=== PATIENT | male | born 1965 | race Hispanic/Latino ===

== ENCOUNTER 2021-03-08 08:31 | Inpatient (IN) | payer OTHER, SELFPAY ==
[~2021-03-08] VITALS: Ht 165.1 cm; Wt 63.5 kg
[2021-03-08 09:33] LABS: BASOPHILS % (AUTO) 0.2 % (0.0-5.0); EOSINOPHILS % (AUTO) 0.3 % (0.0-8.0); HEMATOCRIT 37.7 % (42-54); LYMPHOCYTES % (AUTO) 13.6 % (21.0-51.0); MEAN CORPUSCULAR HGB CONC 33.2 g/dL (32.0-36.0); MEAN CORPUSCULAR VOLUME 93.5 fL (79-99); MONOCYTES % (AUTO) 14.2 % (3.0-13.0); NEUTROPHILS % (AUTO) 71.4 % (40.0-77.0); PLATELET COUNT (AUTO) 203 K/uL (130-400); RED BLOOD CELL COUNT(AUTO) 4.03 MIL/uL (4.50-6.20); RED CELL DISTRIBUTION WIDTH 11.9 % (11.0-15.5); WHITE BLOOD COUNT (AUTO) 8.9 K/uL (4.8-10.8)
[2021-03-08 09:39] LABS: APPEARANCE,URINE CLEAR (CLEAR); BILIRUBIN,URINE NEGATIVE (NEGATIVE); COLOR,URINE YELLOW (YELLOW); GLUCOSE, URINE (UA) NEGATIVE (NEGATIVE); KETONES,URINE NEGATIVE (NEGATIVE); LEUKOCYTE ESTERASE ,URINE NEGATIVE (NEGATIVE); NITRATE,URINE NEGATIVE (NEGATIVE); OCCULT BLOOD,URINE NEGATIVE (NEGATIVE); PROTEIN,URINE NEGATIVE (NEGATIVE); UROBILINOGEN,URINE 0.2 mg/dL (0.2-1.0)
[2021-03-08 09:48] LABS: ALBUMIN 3.7 g/dL (3.5-5.0); BILIRUBIN,TOTAL 0.7 mg/dL (0.2-1.0); CREATININE 0.7 mg/dL (0.5-1.5); POTASSIUM 3.5 mmol/L (3.5-5.1); TOTAL PROTEIN, SERUM 6.8 g/dL (6.0-8.3)
[2021-03-08] MEDS ORDERED: ASPIRIN 325MG TAB ONE (10:11)
[2021-03-08] MEDS ORDERED: ASPIRIN 325MG TAB PO ONE (10:30)
[2021-03-08] MEDS ORDERED: 0.9%NACL 1000ML 1,000 ML IV SCH (10:30)
[2021-03-08] MEDS ORDERED: ACETAMINOPHEN 325 MG TAB PO PRN ×2 (12:00)
[2021-03-08] MEDS ORDERED: ONDANSETRON 4MG INJ IV PRN (12:00)
[2021-03-08] MEDS ORDERED: HYDRALAZINE 20MG/ML VIAL IV PRN (12:00)
[2021-03-08] MEDS ORDERED: DIPHENHYDRAMINE HCL 25 MG CAPSULE PO PRN (12:00)
[2021-03-08] MEDS ORDERED: PHARMACY COMMUNICATION MISC SCH (12:00)
[2021-03-08 12:34] LABS: CHOLESTEROL 144 mg/dL (<200); HDL CHOLESTEROL 54 mg/dL (29-71); HEMOGLOBIN A1C 6.2 % (4.0-6.0); LDL DIRECT 73 mg/dL (0-99); TRIGLYCERIDES 74 mg/dL (30-200)
[2021-03-08] MEDS ORDERED: IOHEXOL-350 75 ML VIAL IV ONE (13:17)
[2021-03-08 15:27] VITALS: BP 92/61
[2021-03-08] MEDS ORDERED: ASPI-1005 PO (15:52)
[2021-03-08] MEDS ORDERED: ATOR10 PO (15:57)
[2021-03-08] MEDS: INSULIN HUMULIN R 100 UNIT/ML 3ML SQ SCH ×2 (16:30→19:55)
[2021-03-08] MEDS: 0.9%NACL 1000ML 1,000 ML IV SCH (16:47)
[2021-03-08] MEDS ORDERED: POTASSIUM CHLORIDE 20MEQ/100ML 100 ML IV PRN (17:00)
[2021-03-08] MEDS ORDERED: LIDOCAINE HCL-MPF 1% 2ML VIAL IV PRN (17:00)
[2021-03-08] MEDS ORDERED: POTASSIUM CHLORIDE 10% ELIXIR 20 MEQ/15 ML UDCUP PO PRN (17:00)
[2021-03-08] MEDS: HEPARIN 25,000 UNITS/250ML D5W 250 ML IV PRN (17:06)
[2021-03-08] MEDS: KCL 20 MEQ ERTAB PO PRN (17:41)
[2021-03-08] MEDS ORDERED: CLOPIDOGREL 300MG TAB PO ONE (18:00)
[2021-03-08] MEDS: FAMOTIDINE 20MG TAB PO SCH (19:35)
[2021-03-08] MEDS: ATORVASTATIN 40 MG TABLET PO SCH (19:35)
[2021-03-08 20:17] VITALS: BP 90/55
[2021-03-08 21:45] VITALS: BP 100/62
[2021-03-08 23:29] VITALS: BP 87/52
[2021-03-09] VITALS (12 sets, daily range): BP systolic 91–132; BP diastolic 44–88
[2021-03-09] MEDS ORDERED: HEPARIN 5,000 UNIT VIAL SQ PRN (01:00)
[2021-03-09] MEDS: 0.9%NACL 1000ML 1,000 ML IV SCH ×2 (01:07→11:46)
[2021-03-09] MEDS: KCL 20 MEQ ERTAB PO PRN ×2 (01:07→03:17)
[2021-03-09] MEDS ORDERED: HEPARIN 5,000 UNIT VIAL IV PRN (01:30)
[2021-03-09] MEDS: HEPARIN 25,000 UNITS/250ML D5W 250 ML IV PRN ×2 (01:31→18:26)
[2021-03-09 02:06] LABS: MEAN CORPUSCULAR HEMOGLOBIN 30.3 pg (27.0-33.0); MEAN CORPUSCULAR HGB CONC 32.1 g/dL (32.0-36.0); MEAN CORPUSCULAR VOLUME 94.3 fL (79-99); RED BLOOD CELL COUNT(AUTO) 3.5 MIL/uL (4.50-6.20); RED CELL DISTRIBUTION WIDTH 12.2 % (11.0-15.5); WHITE BLOOD COUNT (AUTO) 6.9 K/uL (4.8-10.8)
[2021-03-09 02:17] LABS: CREATININE 0.7 mg/dL (0.5-1.5); POTASSIUM 3.6 mmol/L (3.5-5.1)
[2021-03-09 02:19] LABS: INR 1.05 (0.85-1.15); PROTHROMBIN TIME 11.4 SEC (9.6-11.6)
[2021-03-09 02:20] LABS: PARTIAL THROMBOPLASTIN TIME 80.9 SEC (26.3-35.5)
[2021-03-09] MEDS: INSULIN HUMULIN R 100 UNIT/ML 3ML SQ SCH ×4 (06:07→19:49)
[2021-03-09] MEDS ORDERED: IOHEXOL-350 50ML VIAL IV ONE (08:35)
[2021-03-09] MEDS ORDERED: LIDOCAINE HCL 400MG/20ML VIAL ONE (08:35)
[2021-03-09] MEDS ORDERED: BIVALIRUDIN 250 MG/VIAL IV ONE (08:35)
[2021-03-09] MEDS ORDERED: NICARDIPINE 25MG INJ IV ONE (08:35)
[2021-03-09] MEDS ORDERED: NITROGLYCERIN 50MG VIAL IV ONE (08:35)
[2021-03-09] MEDS ORDERED: HEPARIN 10,000 UNIT/10ML (1,000 UNIT/ML) VIAL ONE (08:35)
[2021-03-09] MEDS ORDERED: IOHEXOL 350 MG/ML 100ML INFUS..BTL IV ONE ×2 (08:35→10:06)
[2021-03-09] MEDS: ASPIRIN 81MG CHEW TAB PO SCH (08:41)
[2021-03-09] MEDS: FAMOTIDINE 20MG TAB PO SCH ×2 (08:41→19:48)
[2021-03-09] MEDS: CLOPIDOGREL 75MG TAB PO SCH (08:42)
[2021-03-09] MEDS ORDERED: FENTANYL CITRATE PF 50 MCG/1 ML 2ML VIAL ONE (09:11)
[2021-03-09] MEDS ORDERED: MIDAZOLAM HCL 1 MG/ML 2ML VIAL ONE (09:11)
[2021-03-09] MEDS ORDERED: CLOPIDOGREL 300MG TAB ONE (09:37)
[2021-03-09] MEDS ORDERED: ATROPINE 1MG SYG IVP ONE (09:48)
[2021-03-09] MEDS ORDERED: PHENYLEPHRINE HCL 10 MG/ML 1ML VIAL IV ONE (09:51)
[2021-03-09 11:21] LABS: HEMOGLOBIN A1C 6.2 % (4.0-6.0)
[2021-03-09] MEDS ORDERED: 0.9%NACL 1000ML 1,000 ML IV SCH (11:30)
[2021-03-09] MEDS ORDERED: ACETAMINOPHEN WITH CODEINE 1 TAB TAB PO PRN ×2 (11:30)
[2021-03-09] MEDS: ATORVASTATIN 40 MG TABLET PO SCH (19:48)
[2021-03-10] VITALS: BP 92/54
[2021-03-10 01:17] VITALS: BP 92/54
[2021-03-10 03:39] VITALS: BP 100/58
[2021-03-10 04:10] LABS: HEMATOCRIT 34.3 % (42-54); MEAN CORPUSCULAR HEMOGLOBIN 30.2 pg (27.0-33.0); MEAN CORPUSCULAR HGB CONC 32.4 g/dL (32.0-36.0); MEAN CORPUSCULAR VOLUME 93.2 fL (79-99); RED BLOOD CELL COUNT(AUTO) 3.68 MIL/uL (4.50-6.20); RED CELL DISTRIBUTION WIDTH 11.9 % (11.0-15.5); WHITE BLOOD COUNT (AUTO) 7.6 K/uL (4.8-10.8)
[2021-03-10 04:44] LABS: CREATININE 0.8 mg/dL (0.5-1.5); POTASSIUM 3.6 mmol/L (3.5-5.1)
[2021-03-10] MEDS: INSULIN HUMULIN R 100 UNIT/ML 3ML SQ SCH ×2 (05:20→11:30)
[2021-03-10 07:21] VITALS: BP 109/52
[2021-03-10] MEDS: FAMOTIDINE 20MG TAB PO SCH (08:21)
[2021-03-10] MEDS: CLOPIDOGREL 75MG TAB PO SCH (08:21)
[2021-03-10] MEDS: ASPIRIN 81MG CHEW TAB PO SCH (08:21)
[2021-03-10] MEDS ORDERED: FAMO20TA8 PO (08:42)
[2021-03-10] MEDS ORDERED: CLOP75TA14 PO (08:42)
[2021-03-10] MEDS ORDERED: ASPI-1005 PO (08:42)
[2021-03-10] MEDS ORDERED: ATOR40TA69 PO (08:42)
[2021-03-10] MEDS ORDERED: HEPARIN 5,000 UNIT VIAL ONE (09:18)
[2021-03-10 11:19] VITALS: BP 90/52
== END 2021-03-10 14:28 | disposition home or self-care (01) | DRG 251 ==
LOC: EDH 08:31 → EDHIP 08:32 → 4DH 16:06
PROVIDERS: ADMIT Hospitalist; ATTEND Hospitalist
PROC: 02703ZZ Dilation of Coronary Artery, One Artery, Percutaneous Approach (ICD-10-PCS; principal; 2021-03-09)
PROC: 4A023N7 Measurement of Cardiac Sampling and Pressure, Left Heart, Percutaneous Approach (ICD-10-PCS; 2021-03-09)
PROC: B2111ZZ Fluoroscopy of Multiple Coronary Arteries using Low Osmolar Contrast (ICD-10-PCS; 2021-03-09)
DX: I21.4 Non-ST elevation (NSTEMI) myocardial infarction (principal); I10 Essential (primary) hypertension; E78.5 Hyperlipidemia, unspecified; Z20.822 Contact with and (suspected) exposure to COVID-19; E78.00 Pure hypercholesterolemia, unspecified; R73.03 Prediabetes; Z79.02 Long term (current) use of antithrombotics/antiplatelets; Z91.14 Patient's other noncompliance with medication regimen; Z82.49 Family history of ischemic heart disease and other diseases of the circulatory system
CPT/HCPCS: 36415; 70450; 70496; 70498; 70551; 80048; 80053; 80061; 81003; 82550; 82607; 82948; 83036; 84132; 84484; 85025; 85027; 85347; 85610; 85730; 87635; 92522; 92610; 92920; 93005; 93306; 93356; 93458; 99156; 99157; C1725; C1769; C1887; G0378; J0461; J0583; J1644; J2250; J2370; J3010; J3490; J7030; Q9967

== ENCOUNTER → 2023-01-30 | Outpatient (CLI) | payer OTHER ==
[~2023-01-30] MED LIST: ASPI-1005 PO; ATOR40TA69 PO; CLOP-31 PO; FAMO20TA8 PO
[2023-01-30 12:18] LABS: BASOPHILS # (AUTO) 0.04 K/uL (0.00-0.20); BASOPHILS % (AUTO) 0.7 % (0.0-5.0); EOSINOPHILS # (AUTO) 0.15 K/uL (0.00-0.70); EOSINOPHILS % (AUTO) 2.5 % (0.0-8.0); HEMATOCRIT 43.3 % (42-54); IMMATURE GRANULOCYTE ABSOLUTE 0.02 K/uL (0-1); LYMPHOCYTES # (AUTO) 2.6 K/uL (1.0-4.8); LYMPHOCYTES % (AUTO) 44.3 % (21.0-51.0); MEAN CORPUSCULAR HEMOGLOBIN 31.1 pg (27.0-33.0); MEAN CORPUSCULAR HGB CONC 32.6 g/dL (32.0-36.0); MEAN CORPUSCULAR VOLUME 95.4 fL (79-99); MONOCYTES # (AUTO) 0.6 K/uL (0.1-1.0); MONOCYTES % (AUTO) 9.4 % (3.0-13.0); NEUTROPHILS # (AUTO) 2.6 K/uL (1.8-7.7); NEUTROPHILS % (AUTO) 42.8 % (40.0-77.0); PLATELET COUNT (AUTO) 208 K/uL (130-400); RED BLOOD CELL COUNT(AUTO) 4.54 MIL/uL (4.50-6.20); RED CELL DISTRIBUTION WIDTH 12.2 % (11.0-15.5)
[2023-01-30 12:20] LABS: HEMOGLOBIN A1C 6.4 % (4.0-6.0)
[2023-01-30 12:33] LABS: ALBUMIN 4.2 g/dL (3.5-5.0); BILIRUBIN,TOTAL 0.9 mg/dL (0.2-1.0); CREATININE 0.7 mg/dL (0.5-1.5); POTASSIUM 3.5 mmol/L (3.5-5.1); THYROID STIMULATING HORMONE 2.66 uIU/mL (0.36-3.74)
== END | disposition home or self-care (01) ==
LOC: LAB 08:12
PROVIDERS: ATTEND Internal Medicine Cardiovascular Disease
DX: R73.03 Prediabetes (principal); E78.5 Hyperlipidemia, unspecified; R00.1 Bradycardia, unspecified
CPT/HCPCS: 36415; 80053; 80061; 83036; 84439; 84443; 85025

== ENCOUNTER → 2023-03-23 | Outpatient (CLI) | payer OTHER ==
[2023-03-23 22:31] VITALS: PULSE 51; RESP 10
[2023-03-23 22:57] VITALS: PULSE 48; RESP 10
[2023-03-23 23:36] VITALS: PULSE 42; RESP 14
[2023-03-24] VITALS (11 sets, daily range): PULSE 44–62; RESP 12–20
== END | disposition home or self-care (01) ==
LOC: SLP 20:32
PROVIDERS: ATTEND Internal Medicine Cardiovascular Disease
DX: G47.33 Obstructive sleep apnea (adult) (pediatric) (principal)
CPT/HCPCS: 95810